=== PATIENT | female | born 1965 | race Two or more races ===

== ENCOUNTER 2018-11-16 09:00 | Outpatient (CLI) | payer BC | END 2018-11-16 23:59 | disposition home or self-care (01) | LOC: EDBD 09:00 → WOU 09:00 | PROVIDERS: ATTEND Podiatrist Foot & Ankle Surgery | DX: L84 Corns and callosities (principal); M20.41 Other hammer toe(s) (acquired), right foot; M20.12 Hallux valgus (acquired), left foot; Z87.891 Personal history of nicotine dependence; Z98.890 Other specified postprocedural states | CPT/HCPCS: G0463 ==